=== PATIENT | female | born 1940 | race Caucasian/White ===

== ENCOUNTER → 2017-06-24 | Day surgery (SDC) | payer MEDICARE, BC ==
[~2017-06-24] VITALS: Ht 160 cm; Wt 73.8 kg
[~2017-06-24] MED LIST: ASPIRIN EC81 MG PO; BETAGAN 0.5%5 ML OPHTH; CALCIUM500 MG PO; CORDARONE,PACE200 MG PO; COREG 3.1253.125 MG PO; FERGON325 M1 PO; FOLIC ACID1 MG PO; HYDROCODON-ACE1 EAC4 PO; K-TAB 10MEQ10 MEQ PO; LASIX40 MG PO; LEVOTHROID (SY50 MCG PO; LIPITOR40 MG PO; MULTIVITAMINS1 EAC2 PO; OXYGEN M-15 INH; PRINIVIL (ZESTRI5 MG PO; PROTONIX40 MG PO; XARELTO20 MG PO; ZYLOPRIM300 MG PO
--- NOTE | ~2017-06-24 | OR ---
PATIENT'S NAME: MEE YANEZ [facility] AGE: 76 Y [address] ROOM: [place] [address] LOCATION: [facility] [place] ADMIT DATE: 06/24/2017 OR/Procedure Report DISCHARGE DATE: FAMILY PHYSICIAN: Cornell Funes ATTENDING PHYSICIAN: VINICIO KAY SURGEON: Vinicio Kay MD [employer] SUPERVISOR: Freddie Villela PA-C. DATE OF PROCEDURE: 06/24/2017 POSTOPERATIVE DIAGNOSIS: Right foot stage IV pressure ulcer at the fifth metatarsal tuberosity. POSTOPERATIVE DIAGNOSIS: Right foot stage IV pressure ulcer at the fifth metatarsal tuberosity. PROCEDURE: Irrigation and debridement of right foot pressure sore. Debridement included skin, subcutaneous tissue, muscle, and fascia down to bone. Dimensions were 3 cm x 3 cm x 1 cm depth. ANESTHESIA: Sedation anesthesia and peripheral nerve block. FLUIDS: See Anesthesia report. ESTIMATED BLOOD LOSS: Minimal. TOURNIQUET: None. SPECIMEN: None. COMPLICATIONS: None. DISPOSITION: Stable in PACU. COUNTS: All counts correct. INDICATIONS: Ms. Yanez is a pleasant 76-year-old female who underwent the noted procedures above. The risks, benefits, and alternatives of pursuing surgical intervention were discussed with the patient and family. The patient elected to proceed with surgery. Anesthesia was consulted for their perioperative evaluation of the patient. I marked the patient's right foot indicating the correct surgical site. DESCRIPTION OF PROCEDURE: The patient was brought from the holding area to the operating room. A time-out was performed and anesthetic was administered. Perioperative prophylaxis were also administered. PATIENT'S NAME: MEE YANEZ [facility] AGE: 76 Y [address] ROOM: [place] [address] LOCATION: [facility] [place] ADMIT DATE: 06/24/2017 OR/Procedure Report DISCHARGE DATE: FAMILY PHYSICIAN: Cornell Funes ATTENDING PHYSICIAN: VINICIO KAY The right lower extremity was then prepped and draped in a sterile fashion. I turned my attention to the right foot. Use of a tourniquet was deferred. There was a 3 cm x 3 cm x 1 cm in depth lesion at the lateral border of the foot at the base of the fifth metatarsal. It was full thickness in nature. There was surrounding erythema and warmth. There was no active drainage. Using a 15 blade knife, I debrided the pressure ulcer. I used a series of rongeur and curette to debride the site as well and the debridement included skin, subcutaneous tissue, muscle, and fascia down to bone. 3 L of normal sterile saline solution were used to irrigate the wound using low-flow pulsatile lavage. Sterile dressings were then placed in the form of Xeroform, followed by 4x4, Webril, and Jonathan bandage. The patient was then transferred from the operating table on the stretcher and brought to recovery room in stable condition. There were no intraoperative complications noted. Of note, my PA, Freddie Villela PA-C, played an integral role in the intraoperative care of this patient. This included preoperative positioning, intraoperative expert retraction, and closing and dressing functions. IMPRESSION: The patient is status post the noted procedures above. PLAN: The patient will be nonweightbearing on the right lower extremity. She will be encouraged to rest, ice, and elevate the leg going forward. Postoperative pain control will be in the form of [place]. She is currently on Xarelto chronically. She will follow up in my office in 2 weeks for first postoperative visit. She will be discharged home from the PACU, provided she meets the PACU discharge criteria. MD MICKEY MCKEON/anton /[id number] d: 06/24/171825 t: 06/24/17 194, OPERATIVE SUMMARY
--- NOTE | 2017-06-24 13:54 | NUR ---
one iv start per [email or web address]
== END | disposition disaster alternative care site (69) ==
LOC: GPOC 06-17 13:00 → GSDC 08:15 → GPOC 08:30
PROC: 0JBQ0ZZ Excision of Right Foot Subcutaneous Tissue and Fascia, Open Approach (ICD-10-PCS; principal; 2017-06-24)
DX: L89.894 Pressure ulcer of other site, stage 4 (principal); I11.0 Hypertensive heart disease with heart failure; I50.30 Unspecified diastolic (congestive) heart failure; I25.10 Atherosclerotic heart disease of native coronary artery without angina pectoris; E78.5 Hyperlipidemia, unspecified; E03.9 Hypothyroidism, unspecified; I25.5 Ischemic cardiomyopathy; I48.0 Paroxysmal atrial fibrillation; I73.00 Raynaud's syndrome without gangrene; M10.9 Gout, unspecified; M87.874 Other osteonecrosis, right foot; M81.0 Age-related osteoporosis without current pathological fracture; Z79.82 Long term (current) use of aspirin; Z79.899 Other long term (current) drug therapy; Z88.0 Allergy status to penicillin; Z88.1 Allergy status to other antibiotic agents; Z88.2 Allergy status to sulfonamides; Z90.49 Acquired absence of other specified parts of digestive tract; Z98.890 Other specified postprocedural states
CPT/HCPCS: J2001; J2250; J7030